=== PATIENT | male | born 1970 | race African-American/Black ===

== ENCOUNTER 2019-01-12 14:50 | Observation (INO) | payer OTHER ==
--- NOTE | 2019-01-12 16:31 | RAD ---
XR Forearm Lt 2 View STANDARD: 01/12/2019 3:28 PM CLINICAL INDICATION: Fall, injury, pain COMPARISON: Exam earlier same date FINDINGS: Fracture:No fracture. Arthropathy:None of significance. Incidental findings:IV site overlying soft tissues of left forearm. IMPRESSION: 1. No acute osseous abnormality.
[2019-01-12 16:47] LABS: Bilirubin Negative (Negative); Blood, Urine 1+ (Negative); Clarity Clear (Clear); Glucose, Urine (Dipstick) Normal (Negative); Leukocyte 25 Leu/uL (Negative); Nitrite Negative (Negative); Protein, Urine (Dipstick) 20 mg/dL (Neg-Trace); RBC/HPF 0-3 HPF (0-3); Squamous Epithelial 0-3 HPF (0-3); Urobilinogen 3 mg/dL (Less than 2)
[2019-01-12 16:51] LABS: Bacteria/HPF 1+ HPF (None Seen)
[2019-01-12 17:02] LABS: Amphetamine Not Detected (NotDetected); Barbiturates Screen Not Detected (NotDetected); Benzodiazepine Screen Not Detected (NotDetected); Cocaine Metabolite Screen Detected (NotDetected); Medtox Control Line Valid? VALID (VALID); Medtox Reader # READER 4; Methadone Not Detected (NotDetected); Methamphetamine Not Detected (NotDetected); Opiate Screen Not Detected (NotDetected); Oxycodone Screen Not Detected (NotDetected); Phencyclidine (PCP) Not Detected (NotDetected); THC/Cannabinoid Screen Not Detected (NotDetected); Tricyclic Screen Not Detected (NotDetected)
[2019-01-12] MEDS ORDERED: Enoxaparin Sodium 80 MG/0.8 ML SYRINGE ONE (17:14)
[2019-01-12 17:31] LABS: Acetaminophen Less than 6.0 mcg/mL (10.0-30.0); Alcohol Less than 10 mg/dL (Less than 10); Salicylate Less than 8.0 mg/dL (15.0-30.0)
[2019-01-12 17:49] LABS: Troponin I Less than 0.010 ng/mL (< 0.028)
[2019-01-12] MEDS ORDERED: HYDROcodone/Acetaminophen 5/325 mg Tablet PO PRN (17:49)
[2019-01-12] MEDS ORDERED: Ondansetron ODT 4 MG TAB PO PRN (17:49)
[2019-01-12] MEDS ORDERED: Bisacodyl 10 MG SUPP PR PRN (17:49)
[2019-01-12] MEDS ORDERED: Senokot S 8.6-50 MG TAB PO PRN (17:49)
[2019-01-12] MEDS ORDERED: Acetaminophen 325 MG TAB PO PRN (17:49)
[2019-01-12] MEDS ORDERED: Nitroglycerin 0.4 MG TAB (25 Tab Bottle) PO PRN (17:49)
[2019-01-12] MEDS ORDERED: Ondansetron PF 4 MG/2 ML Vial IVP PRN (17:49)
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
[2019-01-12] MEDS: Nitroglycerin 2% Ointment 1 INCH/1 GM Packet TOP SCH (22:17)
[2019-01-12] MEDS: Famotidine/PF 20 mg/2ml Vial SLOW IVP SCH (22:18)
[2019-01-12] MEDS: Famotidine 20 MG TAB PO SCH (22:18)
[2019-01-12] MEDS: Lactated Ringer's 1,000 ML IV SCH (22:19)
[2019-01-12] MEDS: Nicotine 21 MG PATCH TD SCH (22:19)
[2019-01-13] MEDS: Famotidine 20 MG TAB PO SCH ×2 (05:54→20:53)
[2019-01-13] MEDS: Famotidine/PF 20 mg/2ml Vial SLOW IVP SCH ×2 (05:54→19:15)
[2019-01-13 06:00] LABS: ALT (SGPT) 17 U/L (8-55); AST (SGOT) 26 U/L (5-34); Albumin 3.5 g/dL (3.5-5.0); Alkaline Phosphatase 67 U/L (40-110); Anion Gap 12 mmol/L (10-20); BUN (Urea Nitrogen) 15 mg/dL (8.9-20.6); Bilirubin, Total 0.4 mg/dL (0.2-1.2); CK (CPK) 596 U/L (30-200); Calc. Creatinine Clearance 82 mL/min (70-130); Calcium 8.6 mg/dL (7.8-10.44); Carbon Dioxide 21 mmol/L (22-29); Chloride 108 mmol/L (98-107); Estimated GFR-MDRD 85; Globulin 2.4 g/dL (2.4-3.5); Glucose 99 mg/dL (70-105); Potassium 3.8 mmol/L (3.5-5.1); Protein, Total 5.9 g/dL (6.0-8.3); Sodium 137 mmol/L (136-145)
[2019-01-13] MEDS: Nitroglycerin 2% Ointment 1 INCH/1 GM Packet TOP SCH ×3 (06:18→20:53)
[2019-01-13 06:33] LABS: Mean Corpuscular HGB CONC 34.1 g/dL (32.0-36.0); Mean Corpuscular Hemoglobin 31.4 pg (27.0-31.0); Mean Corpuscular Volume 92.1 fL (78.0-98.0); Mean Platelet Volume 6.9 fL (7.4-10.4); Platelet Count 201 thou/uL (130-400); RBC Distribution Width 12.4 % (11.5-14.5); Red Blood Cell (RBC) Count 4.46 mill/uL (4.70-6.10)
[2019-01-13 06:47] LABS: Eosinophils 3 % (0-10); Lymphocytes 65 % (21-51); MDiff Complete? YES; Monocytes 10 % (0-10); Neutrophil 22 % (42-75)
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
[2019-01-13] MEDS: Lactated Ringer's 1,000 ML IV SCH ×2 (08:28→13:54)
[2019-01-13] MEDS ORDERED: Aspirin 325 mg Enteric Coated Tablet PO SCH (09:00)
[2019-01-13] MEDS ORDERED: Enoxaparin Sodium 80 MG/0.8 ML SYRINGE SC SCH (09:00)
[2019-01-13] MEDS ORDERED: FLU VACC QS2019-20(6MOS UP)/PF 60 MCG/0.5 ML SYRINGE IM ONE (09:00)
[2019-01-13 11:51] VITALS: BMI 22.3
--- NOTE | 2019-01-13 14:30 | NM ---
EXAM: Nuclear medicine cardiac perfusion examination with ejection fraction HISTORY: Chest pain TECHNIQUE: Rest images: 10.3 mCi technetium 99m sestamibi Stress images: 30.2 mCi of technetium 9M sestamibi; Adenosine COMPARISON: None FINDINGS: Tomographic images: No fixed or reversible perfusion defects. Gated images: Normal wall motion and ejection fraction of 53%. EDV: 104 mL LHR: 0.2 TID: 1.1 IMPRESSION: No evidence of ischemia
[2019-01-13] MEDS ORDERED: Acetaminophen 500 MG TAB PO PRN (15:05)
--- NOTE | 2019-01-13 15:08 | PDOC.HOSPP ---
- Subjective Subjective: Seen and examined. Denies chest pain this morning. Denies suicidal ideations at this time. He does tell me that he was planning to smoke crack until he . Now patient acknowledges that he needs help. - Objective Vital Signs & Weight: Vital Signs (12 hours) Temp Pulse Resp BP BP Pulse Ox 01/13/19 13:47 98.1 F 62 16 138/94 H 99 01/13/19 07:13 97.8 F 64 12 121/78 97 01/13/19 03:45 98.2 F 69 18 103/67 103/67 97 Weight Admit Weight 160 lb 1.6 oz Weight 160 lb 1.6 oz I&O: 01/12/19 01/13/19 01/14/19 06:59 06:59 06:59 Intake Total 2300 Output Total 325 Balance 1975 Result Diagrams: 01/13/19 05:12 01/13/19 05:12 Radiology Reviewed by me: Yes (NM stress test) Hospitalist ROS - Review of Systems All other systems reviewed; all pertinent +/- noted in HPI/Subj - Medication Medications: Active Medications Generic Name Dose Route Start Last Admin Trade Name Freq PRN Reason Stop Dose Admin Famotidine 20 mg 01/12/19 21:00 01/13/19 05:54 Pepcid SLOW IVP Not Given Q12HR ROZ Famotidine 20 mg 01/12/19 21:00 01/13/19 05:54 Pepcid PO 20 mg BID ROZ Administration Nicotine 21 mg 01/12/19 18:00 01/12/19 22:19 Nicoderm Patch TD 21 mg Q24HR ROZ Administration Nitroglycerin 0.5 inch 01/12/19 22:00 01/13/19 14:22 Nitro-Bid 2% Ointment TOP 0.5 inch Q8HR ROZ Administration Sodium Chloride 10 ml 01/13/19 09:00 01/13/19 05:55 Flush - Normal Saline IVF Not Given Q12HR ROZ - Exam General Appearance: NAD Eye: PERRL, anicteric sclera ENT: normocephalic atraumatic, moist mucosa Neck: supple, symmetric, no lymphadenopathy Heart: RRR, no murmur, no gallops, no rubs Respiratory: CTAB, no wheezes, no rales, no ronchi Gastrointestinal: soft, non-tender, non-distended, no guarding, no rigidity Extremities: no cyanosis, no edema Skin: no lesions, no rashes Neurological: no weakness Musculoskeletal: no muscle wasting Musculoskeletal - other findings: Right arm above the elbow amputation at age 18 , well healed Psychiatric: normal affect, A&O x 3 Hosp A/P (1) Non-cardiac chest pain Code(s): R07.89 - OTHER CHEST PAIN Status: Acute (2) Cocaine abuse Code(s): F14.10 - COCAINE ABUSE, UNCOMPLICATED Status: Acute (3) HTN (hypertension) Code(s): I10 - ESSENTIAL (PRIMARY) HYPERTENSION Status: Acute (4) Dehydration Code(s): E86.0 - DEHYDRATION Status: Acute - Plan Plan: medical unit with telemetry nuclear medicine stress test negative for reversible ischemia echocardiogram discontinue medications for unstable angina patient with noncardiac chest pain likely secondary to cocaine use with patient was previously stating that he was going to kill himself by smoking crack cocaine till he , now the patient acknowledges that he needs inpatient help Metabolic workup has been benign patient has been resuscitated IV fluids and is no longer dehydrated. Medically cleared for mental heal assessment
[2019-01-13] MEDS: Nicotine 21 MG PATCH TD SCH (18:22)
[2019-01-13] MEDS ORDERED: ADENOSINE 60 MG/20 ML VIAL ONE (20:16)
[2019-01-14] MEDS: Nitroglycerin 2% Ointment 1 INCH/1 GM Packet TOP SCH ×3 (05:44→20:53)
[2019-01-14] MEDS ORDERED: Aspirin 81 mg Enteric Coated Tablet PO SCH (09:00)
[2019-01-14] MEDS: Famotidine 20 MG TAB PO SCH ×2 (10:23→20:52)
[2019-01-14] MEDS: Famotidine/PF 20 mg/2ml Vial SLOW IVP SCH ×2 (10:39→20:44)
[2019-01-14] MEDS ORDERED: hydrOXYzine 25 MG TAB PO PRN (13:50)
[2019-01-14] MEDS: Nicotine 21 MG PATCH TD SCH (18:16)
--- NOTE | 2019-01-14 18:37 | PDOC.HOSPP ---
- Subjective Subjective: Seen and examined. I gave the patient the updates of negative stress test and normal echocardiogram. Patient again tells me that he desire sobriety and wishes to be get his mental health straightened out. Patient wants to go to psychiatric facility and states that he has been there in the past. Patient with anxiety in the afternoon, started hydroxyzine. - Objective Vital Signs & Weight: Vital Signs (12 hours) Temp Pulse Resp BP Pulse Ox 01/14/19 16:00 98.2 F 77 17 129/79 96 01/14/19 12:00 98.4 F 70 18 146/85 H 100 01/14/19 07:42 98.3 F 66 18 129/81 96 Weight Admit Weight 160 lb 1.6 oz Weight 160 lb 1.6 oz I&O: 01/13/19 01/14/19 01/15/19 06:59 06:59 06:59 Intake Total 2300 2940 Output Total 325 Balance 1975 2940 Result Diagrams: 01/13/19 05:12 01/13/19 05:12 Hospitalist ROS - Review of Systems All other systems reviewed; all pertinent +/- noted in HPI/Subj - Medication Medications: Active Medications Generic Name Dose Route Start Last Admin Trade Name Freq PRN Reason Stop Dose Admin Acetaminophen 1,000 mg 01/13/19 15:05 01/13/19 18:05 Tylenol PO 1,000 mg Q6H PRN Administration Moderate to Severe Pain (6-10) Aspirin 81 mg 01/14/19 09:00 01/14/19 10:23 Ecotrin PO 81 mg DAILY ROZ Administration Famotidine 20 mg 01/12/19 21:00 01/14/19 10:39 Pepcid SLOW IVP Not Given Q12HR ROZ Famotidine 20 mg 01/12/19 21:00 01/14/19 10:23 Pepcid PO 20 mg BID ROZ Administration Hydroxyzine HCl 50 mg 01/14/19 13:50 01/14/19 14:17 Atarax PO 50 mg Q6H PRN Administration .ANXIETY Nicotine 21 mg 01/12/19 18:00 01/14/19 18:16 Nicoderm Patch TD 21 mg Q24HR ROZ Administration Nitroglycerin 0.5 inch 01/12/19 22:00 01/14/19 14:17 Nitro-Bid 2% Ointment TOP 0.5 inch Q8HR ROZ Administration Sodium Chloride 10 ml 01/13/19 09:00 01/14/19 10:24 Flush - Normal Saline IVF 10 ml Q12HR ROZ Administration - Exam General Appearance: NAD, awake alert Eye: PERRL, anicteric sclera ENT: normocephalic atraumatic, moist mucosa Neck: supple, symmetric Heart: RRR, no murmur, no gallops, no rubs Respiratory: CTAB, no wheezes, no rales, no ronchi Gastrointestinal: soft, non-tender, non-distended, no palpable masses, no guarding, no rigidity Extremities: no edema Skin: no lesions, no rashes Neurological: cranial nerve grossly intact, no weakness Musculoskeletal - other findings: Right arm amputation, well healed Psychiatric: A&O x 3 Hosp A/P (1) Non-cardiac chest pain Code(s): R07.89 - OTHER CHEST PAIN Status: Acute (2) Cocaine abuse Code(s): F14.10 - COCAINE ABUSE, UNCOMPLICATED Status: Acute (3) HTN (hypertension) Code(s): I10 - ESSENTIAL (PRIMARY) HYPERTENSION Status: Acute (4) Dehydration Code(s): E86.0 - DEHYDRATION Status: Acute - Plan Plan: D/c planning nuclear medicine stress test negative for reversible ischemia echocardiogram discontinue medications for unstable angina patient with noncardiac chest pain likely secondary to cocaine use with patient was previously stating that he was going to kill himself by smoking crack cocaine till he , now the patient acknowledges that he needs inpatient help Metabolic workup has been benign patient has been resuscitated IV fluids and is no longer dehydrated. Medically cleared for mental health assessment, discussed case with accepting physician at psychiatric facility who has accepted the patient
[2019-01-14] MEDS ORDERED: Famotidine 20 MG TAB PO SCH (21:00)
[2019-01-14 23:54] VITALS: BP 134/97; TEMP 98.1
--- NOTE | 2019-01-15 12:11 | EKG ---
Test Reason : Blood Pressure : / mmHG Vent. Rate : 054 BPM Atrial Rate : 064 BPM P-R Int : 120 ms QRS Dur : 094 ms QT Int : 446 ms P-R-T Axes : 067 079 -57 degrees QTc Int : 422 ms Sinus rhythm with Blocked Premature atrial complexes Voltage criteria for left ventricular hypertrophy T wave abnormality, consider inferior ischemia T wave abnormality, consider anterolateral ischemia Abnormal ECG Confirmed by SARAY PIZARRO ([id number]), city editor JANET HERNANDEZ ([id number]) on 01/15/2019 12:10:37 PM Referred By: Confirmed By:SARAY PIZARRO
--- NOTE | 2019-01-15 12:11 | EKG ---
Test Reason : Blood Pressure : / mmHG Vent. Rate : 074 BPM Atrial Rate : 074 BPM P-R Int : 124 ms QRS Dur : 092 ms QT Int : 404 ms P-R-T Axes : 148 145 -33 degrees QTc Int : 448 ms Suspect arm lead reversal, interpretation assumes no reversal Unusual P axis, possible ectopic atrial rhythm Minimal voltage criteria for LVH, may be normal variant Lateral infarct , possibly acute T wave abnormality, consider inferior ischemia T wave abnormality, consider anterior ischemia * ACUTE SD * Abnormal ECG Confirmed by SARAY PIZARRO ([id number]), editor department JANET HERNANDEZ ([id number]) on 01/15/2019 12:10:36 PM Referred By: Confirmed By:SARAY PIZARRO
--- NOTE | 2019-01-15 12:12 | EKG ---
Test Reason : Blood Pressure : / mmHG Vent. Rate : 076 BPM Atrial Rate : 076 BPM P-R Int : 126 ms QRS Dur : 094 ms QT Int : 404 ms P-R-T Axes : 073 086 -66 degrees QTc Int : 454 ms Normal sinus rhythm Right atrial enlargement Voltage criteria for left ventricular hypertrophy Anterolateral ST depression Abnormal ECG Confirmed by SARAY PIZARRO ([id number]), material expeditor JANET HERNANDEZ ([id number]) on 01/15/2019 12:12:22 PM Referred By: Confirmed By:SARAY PIZARRO
--- NOTE | 2019-01-15 22:32 | DIS ---
DATE OF ADMISSION: 01/12/2019 DATE OF DISCHARGE: 01/15/2019 REASON FOR HOSPITALIZATION: Cocaine-induced chest pain and suicidal ideation. SIGNIFICANT FINDINGS: The patient was found to have positive urinary toxicology for cocaine. PROCEDURES PERFORMED/TREATMENTS RENDERED: The patient had nuclear medicine stress test to rule out reversible ischemia, this test was found to be normal and there was no stress-induced ischemia. The patient also had echocardiogram, which demonstrated preserved ejection fraction of 55% without significant valvular or anatomical pathology. CONDITION ON DISCHARGE: Stable. SPECIFIC INSTRUCTIONS FOR THE PATIENT/FAMILY: 1. The patient is recommended to stop cocaine use immediately. 2. The patient is recommended safe for transfer to inpatient psychiatric facility. 3. The patient is recommended to have medications adjusted by inpatient psychiatric physician. 4. The patient is recommended to return to acute care hospital immediately if signs or symptoms return, worsen, or any other new symptoms occur. DISCHARGE MEDICATIONS: No chronic medications to be continued at this time and only symptomatic medications as needed. HOSPITAL COURSE: Mr. Aguirre is a pleasant 48-year-old male, who presented to [facility] on 01/12/2019 with chest pain and suicidal ideation. The patient initially presenting to [facility] and was transferred for high level of care. With the patient admitting that he has been using crack cocaine, he was having chest pain and states that he was going to smoke crack cocaine with the intention of killing himself. The patient states that he thinks he had a mild heart attack in the past and he said he went for a cardiac catheterization, though he denies any stent placement or denies any major heart attacks. With the patient not having any intervention on his heart in greater than 1 year, admitting physician recommended further evaluation with nuclear medicine stress test and echocardiogram, please see full report for details. The patient underwent nuclear medicine stress test on 01/13/2019. The patient was found to have no reversible ischemia. The patient underwent echocardiogram, please see full report for details, the patient with preserved ejection fraction of 55% and no significant valvular or anatomic pathology. The patient had metabolic workup, which was benign including a normal WBC count, normal hemoglobin and normal renal function. The patient having negative cardiac enzymes x3. The patient found to have positive urinary toxicology for cocaine metabolites. The patient was recommended safe for discharge to psychiatric facility for acute inpatient psychiatric care. I discussed the case with accepting physician, who accepted the patient into psychiatric facility. The patient was stable on discharge. The patient is recommended to have acute inpatient psychiatric care followed by drug and alcohol counseling. The patient is recommended to abstain from cocaine and other illicit drugs. The patient is recommended to abstain from alcohol use. The patient is recommended to stop smoking. The patient is recommended to return to acute care hospital immediately if signs or symptoms return, worsen, or any other new symptoms occur. Greater than 38 minutes spent coordinating care and discharge process for this patient. Job ID: [id number]
== END 2019-01-15 01:30 ==
LOC: ERS 14:50 → ERHOLD 17:19 → 2NO 21:35
PROVIDERS: ADMIT Internal Medicine Nephrology; ATTEND Internal Medicine Nephrology
DX: T40.5X2A Poisoning by cocaine, intentional self-harm, initial encounter (principal); F14.188 Cocaine abuse with other cocaine-induced disorder; R07.9 Chest pain, unspecified; F32.9 Major depressive disorder, single episode, unspecified; F17.210 Nicotine dependence, cigarettes, uncomplicated; I12.9 Hypertensive chronic kidney disease with stage 1 through stage 4 chronic kidney disease, or unspecified chronic kidney disease; N18.9 Chronic kidney disease, unspecified; E78.5 Hyperlipidemia, unspecified; Z91.14 Patient's other noncompliance with medication regimen
CPT/HCPCS: 36415; 78452; 80053; 80306; 80307; 81003; 81015; 82550; 84443; 85025; 85379; 90471; 90686; 93005; 93017; 93306; 94760; 96360; 96361; 96372; A9500; G0008; G0378; J0153; J1650; S0028